=== PATIENT | male | born 1975 | race Caucasian/White ===

== ENCOUNTER 2018-07-29 13:33 | Emergency (ER) | payer SELFPAY ==
[2018-07-29 13:48] VITALS: BP 106/97; PULSE 93; RESP 15; TEMP 36.9; O2SAT 97; BMI 27.2
--- NOTE | 2018-07-29 14:04 | PC.NURSE ---
The patient c/o L side facial swelling for last 2 days with acute onset. He denies fever, chills, nausea/vomiting, recent URI or history of sinus infection. Pt has a history of dental jael and broken tooth/teeth in L upper molar in the past. Denies previous dental abscess on the same site. Pt denies sig pain and has been rinsing with salt water. Pt does not have a dentist or dental insurance. L side face w/o redness, warmth to touch but swelling
--- NOTE | 2018-07-29 14:17 | ED_ITS ---
HPI - Dental/Oral General Chief complaint: Dental/Oral Stated complaint: left side of mouth swelled up Time Seen by Provider: 07/29/18 13:53 Source: patient Mode of arrival: ambulatory Limitations: no limitations History of Present Illness HPI Narrative: 43-year-old male comes in with complaint of swelling of the left side of his mouth. Patient states he thinks it may be from a dental infection. He has a tooth that is broken off. He does not really have any pain. The swelling started about 2 days ago. It has been slowly getting worse. Patient has not had any fevers no swelling of the tongue, back in the mouth or throat he has not had any difficulty with swallowing or speech. He has not had any difficulty with breathing. Patient denies any pain in the air. He has not noticed any dry mouth. Patient has not had any chest pain, shortness of breath, no nausea or vomiting or other symptoms. Patient does not currently have a dentist he denies any other medical problems, he has had his appendix out but no other surgeries. He does smoke tobacco, occasional alcohol, denies illicit. Related Data Previous Rx's Medication Instructions Recorded penicillin V potassium 500 mg PO QID #40 tab 07/29/18 Allergies Allergy/AdvReac Type Severity Reaction Status Date / Time No Known Drug Allergies Allergy Verified 07/29/18 13:48 Review of Systems Review of Systems ROS Unobtainable: All systems reviewed & are unremarkable except as noted in HPI and below Constitutional Denies chills, Denies fever(s), Denies headache(s) and Denies lethargy ENT Ears, Nose, Mouth, and Throat: Reports as per HPI, Denies change in voice, Denies dental pain, Denies dysphagia, Denies dry mouth, Denies facial pain, Denies headache(s), Denies hoarseness, Denies lip swelling, Denies nasal congestion, Denies sinus pain, Denies sinus pressure, Denies sore throat, Denies throat swelling, Denies tongue swelling and Reports other (Swelling left cheek) Cardiovascular Denies chest pain, Denies dyspnea and Denies dyspnea on exertion Respiratory Denies change in phlegm color, Denies chest congestion, Denies cough, Denies dyspnea and Denies dyspnea on exertion Gastrointestinal Gastrointestinal: Denies abdominal pain, Denies dysphagia, Denies diarrhea, Denies nausea and Denies vomiting Genitourinary Denies hematuria, Denies flank pain, Denies urinary frequency and Denies urinary urgency Integumentary/Breasts Denies erythema and Denies rash Neurologic Denies headache(s) Allergic/Immunologic Denies lip swelling, Denies throat swelling and Denies tongue swelling PFSH Surgical History Hx of appendectomy (Chronic) Social History (Updated 07/29/18 @ 14:13 by Kaylee Marx DO) Smoking Status: Current every day smoker alcohol intake: current substance use type: does not use Social History (Updated 07/29/18 @ 14:13 by Kaylee Marx DO) Smoking Status: Current every day smoker alcohol intake: current substance use type: does not use Exam Narrative Exam Narrative: GEN: well nourished, well appearing male, alert and oriented x 3, patient appears to be in no acute distress. HEENT: Atraumatic, pupils are equal round reactive to light, extraocular movements are intact, nares are clear, TMs are clear with no fluid,. Throat is clear without any exudates, erythema, tonsillar enlargement or uvular deviation, patient does have swelling of the left cheek some patient does appear to have poor dentition, there is no clear focus of infection there is a little bit erythema. Salivary gland does not appear to be block to have any pus. Sinuses as well as bone are nontender to palpation. HEART: Regular rate and rhythm without murmur, clicks, rubs. LUNGS:Lungs clear to auscultation, no wheezes, rales, crackles, chest moves symmetrically ABD:bowel sounds normal, soft, non-tender, no guarding, rebound, rigidity, no masses noted, no hepatosplenomegaly MSCL: Non-tender, no muscle atrophy, muscles strength 5/5 upper and lower extremities, full range of motion, normal gait NEURO:CN 2-12 intact, sensation normal Initial Vital Signs Initial Vital Signs: Vital Signs Temperature 98.5 F 07/29/18 13:48 Pulse Rate 93 H 07/29/18 13:48 Respiratory Rate 15 07/29/18 13:48 Blood Pressure 106/97 H 07/29/18 13:48 Pulse Oximetry 97 07/29/18 13:48 Course Vital Signs - 8 hr 07/29/18 13:48 07/29/18 14:30 Temperature 98.5 F Pulse Rate 93 H 99 H Respiratory Rate 15 16 Blood Pressure 106/97 H 113/72 Pulse Oximetry 97 98 MDM - Dental/Oral Differential Diagnosis Likely gingival abscess, dental caries and other (parotitis/sialadenitis) Discharge Plan Departure Patient Disposition: Home Clinical Impression: Dental infection Discharge Date/Time: 07/29/18 14:30 Interventions: ED Discharge Assessment Last Done: 07/29/18 14:30 Instructions: DI for Dental Pain Activity Restrictions/Additional Instructions: Follow-up with dentist in the following week. Call for an appointment. Take antibiotics until they are completely gone. Start them today. You may take Tylenol up to a 1000 mg every 8 hours as needed for pain, you may also take ibuprofen up to 800 mg every 8 hours as needed for pain. You can take these 2 medications together. You may also use or gel topically as needed. Return to the emergency department for fevers greater 100.4 F, worsening sw elling, difficulty with breathing, swallowing, swelling of the lips, tongue, mouth for airway, if you having increasing or spreading redness or other new or concerning symptoms. Prescriptions: New penicillin V potassium 500 mg tablet 500 mg PO QID Qty: 40 RF: 0
[2018-07-29 14:30] VITALS: BP 113/72; PULSE 99; RESP 16; O2SAT 98
== END 2018-07-29 14:30 | disposition home or self-care (01) ==
PROVIDERS: Emergency Provider Emergency Medicine
DX: K04.7 Periapical abscess without sinus (principal)
CPT/HCPCS: 99282; 99283